=== PATIENT | male | born 1950 | race Caucasian/White ===

== ENCOUNTER 2018-08-10 09:32 | Emergency (ER) | payer MEDICARE ==
[~2018-08-10] VITALS: Ht 185.4 cm; Wt 86.4 kg
[2018-08-10 09:38] VITALS: Ht 185.4 cm; Wt 86.4 kg
[2018-08-10] MEDS ORDERED: CHOLESTEROL MED (09:39)
[2018-08-10] MEDS ORDERED: TIROSINT13 MCG (09:39)
[2018-08-10 11:41] VITALS: BP 130/84
== END 2018-08-10 11:42 | disposition home or self-care (01) ==
LOC: D.ER 09:32
DX: M25.551 Pain in right hip (principal); S32.039A Unspecified fracture of third lumbar vertebra, initial encounter for closed fracture; S32.049A Unspecified fracture of fourth lumbar vertebra, initial encounter for closed fracture; W18.30XA Fall on same level, unspecified, initial encounter; Y93.89 Activity, other specified; Y92.018 Other place in single-family (private) house as the place of occurrence of the external cause; Y99.2 Volunteer activity

== ENCOUNTER → 2018-09-23 12:59 | Outpatient (CLI) | payer MEDICARE ==
[2018-08-10 09:38] VITALS: BMI 25.1
[~2018-09-23 12:59] MED LIST: CHOLESTEROL MED; TIROSINT13 MCG
== END | disposition home or self-care (01) ==
LOC: D.MRI 12:59
DX: M48.56XA Collapsed vertebra, not elsewhere classified, lumbar region, initial encounter for fracture (principal)